=== PATIENT | female | born 1990 | race Caucasian/White ===

== ENCOUNTER 2022-12-10 07:14 | Emergency (ER) | payer OTHER ==
[~2022-12-10] VITALS: Ht 152.4 cm; Wt 63.5 kg
[~2022-12-10 07:14] MED LIST: FAMO-92 PO; MAG-27 PO
[2022-12-10 07:20] VITALS: BP 110/75; PULSE 78; RESP 17; TEMP 97.8; O2SAT 97
[2022-12-10] MEDS ORDERED: CIPR7.5S OT (07:39)
[2022-12-10] MEDS ORDERED: AMOX-999 PO (07:39)
== END 2022-12-10 07:45 | disposition home or self-care (01) ==
LOC: MED 07:14
DX: H60.92 Unspecified otitis externa, left ear (principal); H66.92 Otitis media, unspecified, left ear; Z79.899 Other long term (current) drug therapy
CPT/HCPCS: 99283

== ENCOUNTER 2023-01-04 08:01 | Emergency (ER) | payer OTHER ==
[~2023-01-04] VITALS: Ht 152.4 cm; Wt 67.1 kg
[~2023-01-04 08:01] MED LIST changes: +AMOX-999 PO; +CIPR7.5S OT
[2023-01-04 08:12] VITALS: BP 109/72; PULSE 66; RESP 18; TEMP 97.8; O2SAT 100
[2023-01-04] MEDS ORDERED: ACET-8905 PO (09:00)
[2023-01-04] MEDS ORDERED: NAPR-1704 PO (09:00)
[2023-01-04] MEDS ORDERED: COROTSUS LEFT EAR (09:00)
[2023-01-04 09:18] VITALS: BP 115/72; PULSE 70; RESP 18; TEMP 97.8; O2SAT 100
== END 2023-01-04 09:18 | disposition home or self-care (01) ==
LOC: MED 08:01
DX: H60.92 Unspecified otitis externa, left ear (principal); Z79.899 Other long term (current) drug therapy
CPT/HCPCS: 99283

== ENCOUNTER 2023-12-13 13:58 | Emergency (ER) | payer OTHER, MEDICAID ==
[~2023-12-13] VITALS: Ht 152.4 cm; Wt 68.0 kg
[~2023-12-13 13:58] MED LIST changes: +ACET-8905 PO; +COROTSUS LEFT EAR; +NAPR-1704 PO
[2023-12-13 14:05] VITALS: BP 125/85; PULSE 90; RESP 16; TEMP 98.3; O2SAT 95
[2023-12-13] MEDS: KETOROLAC 30 MG/ML VIAL IM ONE (15:50)
== END 2023-12-13 16:28 | disposition home or self-care (01) ==
LOC: MED 13:58
DX: S76.012A Strain of muscle, fascia and tendon of left hip, initial encounter (principal); S80.02XA Contusion of left knee, initial encounter; Z98.890 Other specified postprocedural states; Z79.899 Other long term (current) drug therapy; V89.2XXA Person injured in unspecified motor-vehicle accident, traffic, initial encounter; Y93.89 Activity, other specified; Y92.410 Unspecified street and highway as the place of occurrence of the external cause; Y99.8 Other external cause status
CPT/HCPCS: 73502; 73562; 96372; 99284; J1885